=== PATIENT | male | born 1975 | race Two or more races ===

== ENCOUNTER 2025-01-31 08:40 | Emergency (ER) | payer OTHER ==
[~2025-01-31] VITALS: Ht 175.3 cm; Wt 79.4 kg
[2025-01-31] MEDS ORDERED: KETOROLAC TROMETHAMINE 60 MG VIAL IM STA (10:00)
[2025-01-31] MEDS ORDERED: KETOROLAC TROMETHAMINE 60 MG VIAL IM ONE (10:07)
== END 2025-01-31 12:45 | disposition home or self-care (01) ==
LOC: ER 08:49
DX: S10.93XA Contusion of unspecified part of neck, initial encounter (principal); S50.02XA Contusion of left elbow, initial encounter; V00.848A Other accident with standing micro-mobility pedestrian conveyance, initial encounter; Y93.89 Activity, other specified; Y92.89 Other specified places as the place of occurrence of the external cause; Y99.9 Unspecified external cause status; Z88.8 Allergy status to other drugs, medicaments and biological substances